=== PATIENT | male | born 1955 | race African-American/Black ===

== ENCOUNTER 2021-01-28 21:09 | Inpatient (IN) | payer OTHER, MEDICAID ==
[~2021-01-28] VITALS: Ht 200.7 cm; Wt 170.1 kg
[2021-01-29] VITALS (7 sets, daily range): BP systolic 121–142; BP diastolic 78–98
[2021-01-29 00:19] LABS: HEMATOCRIT 38.1 % (42.0-52.0); HEMOGLOBIN 13.2 g/dL (14.0-18.0); MEAN CORPUSCULAR VOLUME 89.2 fL (80.0-94.0); PLATELET 518 x1000/uL (130-400); RED BLOOD CELL COUNT 4.28 mill/uL (4.7-6.1); RED CELL DISTRIBUTION WIDTH 14.6 % (11.6-14.6)
[2021-01-29 00:20] LABS: CHLORIDE 102 mEq/L (98-107)
[2021-01-29] MEDS ORDERED: MORPHINE SULFATE 2 MG/ML CPJ (NOT FOR IM USE) IV ONE (06:30)
[2021-01-29] MEDS ORDERED: ONDANSETRON HCL 4MG/2ML INJ IV PRN (11:45)
[2021-01-29] MEDS ORDERED: LACTULOSE 20G/30ML UDC PO NR (11:45)
[2021-01-29] MEDS ORDERED: NALOXONE HCL 0.4MG/ML VIAL IV PRN (12:00)
[2021-01-29 12:18] LABS: BASOPHILS % 1.2 % (0.0-2.0); EOSINOPHILS % 0.8 % (0.0-5.0); HEMATOCRIT. 35.9 % (42.0-52.0); HEMOGLOBIN. 12.2 g/dL (14.0-18.0); LYMPHOCYTES % 20.9 % (20.0-50.0); MEAN CORPUSCULAR HEMOGLOBIN 30.3 pg (28.0-32.0); MEAN PLATELET VOLUME 7.3 fl (7.4-10.4); MONOCYTES % 10.4 % (2.0-8.0); NEUTROPHILS % 66.7 % (40.0-76.0); PLATELET 550 x1000/uL (130-400); RED BLOOD CELL COUNT 4.03 mill/uL (4.7-6.1); RED CELL DISTRIBUTION WIDTH 14.5 % (11.6-14.6)
[2021-01-29 12:29] LABS: PROTHROMBIN TIME 10.8 sec (9.6-11.0)
[2021-01-29] MEDS: MORPHINE SULFATE 2 MG/ML CPJ (NOT FOR IM USE) IV PRN ×3 (12:34→22:17)
[2021-01-29 12:49] LABS: CHLORIDE 101 mEq/L (98-107)
[2021-01-29] MEDS: PIPERACILLIN/TAZOBACTAM 3.375 G in DEXTROSE 5% WATER 50 ML IV SCH ×2 (13:50→17:49)
[2021-01-29] MEDS ORDERED: VANCOMYCIN 2,000 MG in DEXT 5% WATER 500 ML IV NR (14:00)
[2021-01-29] MEDS ORDERED: DOCUSATE SODIUM 100MG CAPSULE PO SCH (17:00)
[2021-01-30] MEDS ORDERED: VANCOMYCIN 1250MG in DEXTROSE 5% WATER 250ML IV SCH
== END 2021-01-29 22:35 | DRG 559 ==
LOC: ER 21:09 → EDBD 21:09 → MICUSO 01-29 04:12 → 6EST 01-29 08:53
PROVIDERS: ADMIT Internal Medicine; ATTEND Internal Medicine
PROC: 05HY33Z Insertion of Infusion Device into Upper Vein, Percutaneous Approach (ICD-10-PCS; principal; 2021-01-29)
PROC: B54MZZA Ultrasonography of Right Upper Extremity Veins, Guidance (ICD-10-PCS; 2021-01-29)
DX: T84.63XA Infection and inflammatory reaction due to internal fixation device of spine, initial encounter (principal); A41.9 Sepsis, unspecified organism; E87.1 Hypo-osmolality and hyponatremia; R17 Unspecified jaundice; D64.9 Anemia, unspecified; F41.9 Anxiety disorder, unspecified; K59.00 Constipation, unspecified; M48.061 Spinal stenosis, lumbar region without neurogenic claudication; R73.9 Hyperglycemia, unspecified; Y79.8 Miscellaneous orthopedic devices associated with adverse incidents, not elsewhere classified; Y92.89 Other specified places as the place of occurrence of the external cause
CPT/HCPCS: 36415; 76937; 80053; 85025; 85027; 93005; 99285; C1725; J2270; J2543; J3370; J7060

== ENCOUNTER 2022-09-18 14:20 | Inpatient (IN) | payer OTHER, MEDICAID ==
[~2022-09-18] VITALS: Ht 200.7 cm; Wt 174.8 kg
[2022-09-18] MEDS: LEVETIRACETAM 500MG TABLET PO ONE ×2 (15:00→15:52)
[2022-09-18] MEDS ORDERED: LEVETIRACETAM 500 MG in SODIUM CHLORIDE 0.9% 100 ML IV SCH (16:30)
[2022-09-18] MEDS ORDERED: LEVETIRACETAM 1000MG PREMIX 100 ML IV NR (16:30)
[2022-09-18] MEDS: HYDRALAZINE 20MG/ML VIAL IV NR ×4 (17:39→19:01)
[2022-09-18] MEDS ORDERED: KETOROLAC 30MG/ML VIAL IV ONE (18:15)
[2022-09-18] MEDS ORDERED: SODIUM CHLORIDE 0.9% 500 ML IV ONE (18:15)
[2022-09-18] MEDS ORDERED: KEPP500 MT (20:14)
[2022-09-18] MEDS ORDERED: OXYCODONE HCL/ACETAMINOPHEN 5/325MG TABLET PO ONE (20:45)
[2022-09-18] MEDS ORDERED: FAMOTIDINE 20MG/2ML VIAL IV STA (22:31)
[2022-09-18] MEDS ORDERED: MORPHINE SULFATE 4 MG/ML CPJ (NOT FOR IM USE) IV STA (22:31)
[2022-09-18] MEDS ORDERED: ONDANSETRON HCL 4MG/2ML INJ IV STA (22:31)
[2022-09-18 23:19] LABS: BASOPHILS % 0.5 % (0.0-2.0); EOSINOPHILS % 0.3 % (0.0-5.0); HEMATOCRIT. 46.5 % (42.0-52.0); HEMOGLOBIN. 15.3 g/dL (14.0-18.0); LYMPHOCYTES % 28.9 % (20.0-50.0); MEAN CORPUSCULAR HEMOGLOBIN 30.9 pg (28.0-32.0); MEAN CORPUSCULAR VOLUME 93.8 fL (80.0-94.0); MEAN PLATELET VOLUME 8.1 fl (7.4-10.4); MONOCYTES % 7.3 % (2.0-8.0); PLATELET 350 x1000/uL (130-400); RED BLOOD CELL COUNT 4.96 mill/uL (4.7-6.1); RED CELL DISTRIBUTION WIDTH 16.1 % (11.6-14.6)
[2022-09-18 23:21] LABS: INR 1.1; PROTHROMBIN TIME 11.9 sec (9.6-11.0)
[2022-09-18] MEDS: VANCOMYCIN 1G PREMIX 200 ML IV NR (23:45)
[2022-09-18] MEDS ORDERED: SODIUM CHLORIDE 0.9% 1,000 ML IV ONE (23:45)
[2022-09-18] MEDS ORDERED: PIPERACILLIN/TAZ 3.375G PREMIX 50 ML IV NR (23:45)
[2022-09-18 23:48] LABS: CHLORIDE 112 mEq/L (98-107)
[2022-09-19] MEDS: VANCOMYCIN 1G PREMIX 200 ML IV NR (03:06)
[2022-09-19] MEDS ORDERED: SODIUM CHLORIDE 0.45% 250 ML IV ONE (03:30)
[2022-09-19 03:42] LABS: CLARITY URINE CLOUDY (CLEAR); COLOR URINE DARK YELLOW (YELLOW); KETONES URINE TRACE (NEGATIVE); LEUKOCYTE ESTERASE URINE 1+ (NEGATIVE); NITRITE URINE NEGATIVE (NEGATIVE); OCCULT BLOOD URINE NEGATIVE (NEGATIVE); PROTEIN URINE 1+ (NEGATIVE); SPECIFIC GRAVITY URINE 1.029 (1.005-1.030)
[2022-09-19 09:15] VITALS: BP 110/64
[2022-09-19] MEDS ORDERED: CLONIDINE 0.1MG TABLET PO PRN (11:15)
[2022-09-19] MEDS ORDERED: ACETAMINOPHEN 325MG TABLET PO PRN (11:15)
[2022-09-19] MEDS ORDERED: IPRATROPIUM/ALBUTEROL 0.5-3(2.5)MG/3ML NEB HHN PRN (11:15)
[2022-09-19] MEDS ORDERED: ONDANSETRON HCL 4MG/2ML INJ IV PRN (11:15)
[2022-09-19 12:00] VITALS: BP 119/61
[2022-09-19] MEDS ORDERED: LEVOFLOXACIN 500MG PREMIX 100 ML IV SCH (12:00)
[2022-09-19] MEDS: LEVETIRACETAM 500MG/5ML CUP PO SCH ×2 (13:15→20:31)
[2022-09-19] MEDS: ENOXAPARIN 40MG/0.4ML SYR SUBCUT SCH ×2 (13:16→23:10)
[2022-09-19 16:00] VITALS: BP 120/74
[2022-09-19] MEDS ORDERED: NALOXONE HCL 0.4MG/ML VIAL IV PRN (17:30)
[2022-09-19 18:33] LABS: CREATINE KINASE MB FRACTION 7.5 ng/mL (0.5-3.6)
[2022-09-19 18:38] LABS: CHLORIDE 110 mEq/L (98-107)
[2022-09-19 20:00] VITALS: BP 117/60
[2022-09-20 00:08] VITALS: BP 110/55
[2022-09-20 03:46] VITALS: BP 124/67
[2022-09-20 08:39] VITALS: BP 102/50
[2022-09-20] MEDS: LEVOFLOXACIN 250MG PREMIX 50 ML IV SCH (09:49)
[2022-09-20] MEDS: LEVETIRACETAM 500MG/5ML CUP PO SCH ×2 (09:49→22:02)
[2022-09-20] MEDS ORDERED: LACTULOSE 20G/30ML UDC PO NR (11:30)
[2022-09-20 12:19] VITALS: BP 113/71
[2022-09-20] MEDS: ENOXAPARIN 40MG/0.4ML SYR SUBCUT SCH (13:37)
[2022-09-20 16:00] VITALS: BP 110/72
[2022-09-20] MEDS: HYDROCODONE/ACETAMINOPHEN 5/325MG TABLET PO PRN (16:07)
[2022-09-20] MEDS: SODIUM CHLORIDE 0.9% 1,000 ML IV SCH (18:54)
[2022-09-20 20:00] VITALS: BP 118/74
[2022-09-21 00:20] VITALS: BP 155/77
[2022-09-21] MEDS: ENOXAPARIN 40MG/0.4ML SYR SUBCUT SCH ×2 (03:51→12:55)
[2022-09-21] MEDS: SODIUM CHLORIDE 0.9% 1,000 ML IV SCH ×2 (03:53→12:14)
[2022-09-21 04:00] VITALS: BP 113/58
[2022-09-21 05:52] LABS: BASOPHILS % 0.4 % (0.0-2.0); EOSINOPHILS % 2.9 % (0.0-5.0); HEMATOCRIT. 37.8 % (42.0-52.0); HEMOGLOBIN. 12.8 g/dL (14.0-18.0); MEAN CORPUSCULAR HEMOGLOBIN 31.2 pg (28.0-32.0); MEAN CORPUSCULAR VOLUME 91.9 fL (80.0-94.0); MEAN PLATELET VOLUME 7.7 fl (7.4-10.4); MONOCYTES % 4.4 % (2.0-8.0); NEUTROPHILS % 61.3 % (40.0-76.0); PLATELET 326 x1000/uL (130-400); RED BLOOD CELL COUNT 4.12 mill/uL (4.7-6.1); RED CELL DISTRIBUTION WIDTH 15.8 % (11.6-14.6)
[2022-09-21 08:00] VITALS: BP 123/77
[2022-09-21 08:40] LABS: CHLORIDE 113 mEq/L (98-107)
[2022-09-21 08:48] LABS: PHOSPHORUS 3.1 mg/dL (2.5-4.9)
[2022-09-21 09:49] VITALS: BP 123/77
[2022-09-21] MEDS: HYDROCODONE/ACETAMINOPHEN 5/325MG TABLET PO PRN (09:49)
[2022-09-21] MEDS: LEVETIRACETAM 500MG/5ML CUP PO SCH (09:49)
[2022-09-21] MEDS: LEVOFLOXACIN 250MG PREMIX 50 ML IV SCH (09:49)
[2022-09-21 17:32] LABS: BG BASE EXCESS -2.1 mmol/L (-2.0-2.0); BG CARBOXYHEMOGLOBIN 0.3 % (0.5-1.5); BG DEOXYHEMOGLOBIN 1.5 % (0.0-5.0); BG FRACTION INSPIRED OXYGEN 21; BG HCO3 ACT 17.5 mmol/L (22.0-26.0); BG METHEMOGLOBIN 0.4 % (0.0-1.5); BG OXYGEN SATURATION 98.5 % (92.0-98.5); BG OXYHEMOGLOBIN 97.8 % (94.0-97.0); BG PCO2 18.6 mmHg (35.0-45.0); BG PH 7.591 (7.350-7.450); BG PO2 117.9 mmHg (75.0-100.0); BG SAMPLE SITE LEFT RADIAL; BG TOTAL HEMOGLOBIN 12.1 g/dL (12.0-18.0); BG VENT MODE ROOM AIR
[2022-09-22] MEDS ORDERED: LEVOFLOXACIN 250MG TABLET PO SCH (11:00)
== END 2022-09-21 18:40 | disposition left against medical advice (07) | DRG 100 ==
LOC: ER 14:35 → MICUSO 09-19 01:21 → 7WST 09-19 09:26
PROVIDERS: ADMIT Internal Medicine; ATTEND Internal Medicine
PROC: 4A00X4Z Measurement of Central Nervous Electrical Activity, External Approach (ICD-10-PCS; principal; 2022-09-21)
DX: G40.909 Epilepsy, unspecified, not intractable, without status epilepticus (principal); N17.0 Acute kidney failure with tubular necrosis; E87.20 Acidosis, unspecified; E44.0 Moderate protein-calorie malnutrition; Z68.41 Body mass index [BMI] 40.0-44.9, adult; E11.22 Type 2 diabetes mellitus with diabetic chronic kidney disease; E66.9 Obesity, unspecified; N18.9 Chronic kidney disease, unspecified; I12.9 Hypertensive chronic kidney disease with stage 1 through stage 4 chronic kidney disease, or unspecified chronic kidney disease; I95.9 Hypotension, unspecified; K59.00 Constipation, unspecified; G89.29 Other chronic pain; E78.5 Hyperlipidemia, unspecified; E87.6 Hypokalemia; F41.9 Anxiety disorder, unspecified; Z53.29 Procedure and treatment not carried out because of patient's decision for other reasons; Z82.49 Family history of ischemic heart disease and other diseases of the circulatory system; Z99.3 Dependence on wheelchair; Z91.040 Latex allergy status
CPT/HCPCS: 36415; 36600; 71045; 72131; 74018; 74176; 80048; 80053; 81003; 82375; 82550; 82553; 82805; 82962; 83605; 83735; 84100; 84145; 84153; 84425; 84484; 85025; 86850; 86900; 93005; 95816; 97162; 99285; C1893; J0360; J1650; J1885; J1953; J1956; J2270; J2405; J2543; J3370; J3490; J7030; J7040; G0103